=== PATIENT | female | born 1980 | race Caucasian/White ===

== ENCOUNTER 2016-12-04 08:09 | Day surgery (SDC) | payer MEDICARE, MEDICAID ==
[~2016-12-04] VITALS: Ht 162.6 cm; Wt 58.6 kg
[~2016-12-04 08:09] MED LIST: GLYCOPYRROLATE 0.2 MG/ML (ROBINUL) 1 ML VIAL ONE; KETAMINE HCL 100 MG/ML 5 ML VIAL ONE; LACTATED RINGERS 1,000 ML IV SCH; MIDAZOLAM 5 MG/ML ONE; SODIUM CHLORIDE FLUSH 3 ML SYR IV PRN
[2016-12-04 08:14] VITALS: BP 135/91
[2016-12-04 08:40] VITALS: BP 125/85
[2016-12-04 09:22] VITALS: BP 130/84
== END 2016-12-04 09:37 | disposition home or self-care (01) ==
LOC: ASC 08:09
PROVIDERS: ATTEND Family Medicine
DX: Z51.81 Encounter for therapeutic drug level monitoring (principal); Z79.899 Other long term (current) drug therapy; F84.0 Autistic disorder
CPT/HCPCS: 80164; J2250; J3490; 36415